=== PATIENT | male | born 1990 ===

== ENCOUNTER 2024-08-08 01:00 | Outpatient (CLI) | payer OTHER, SELFPAY ==
[2024-08-08 12:01] LABS: Abs Immature Grans 0.01 10^3/uL (0.0-0.06); Absolute Basophil Count 0.02 10^3/uL (0.0-0.2); Absolute Eosinophil Count 0.13 10^3/uL (0.0-0.7); Absolute Lymphocyte Count 1.26 10^3/uL (1.2-3.4); Absolute Monocyte Count 0.72 10^3/uL (0.1-0.8); Absolute Neutrophil Count 3.88 10^3/uL (1.2-6.7); Basophils % 0.3 %; Eosinophils % 2.2 %; HGB 14.6 g/dL (13.5-17.5); Immature Grans % 0.2 %; Lymphocytes % 20.9 %; MCH 27.3 pg (27.0-33.0); MCHC 34.8 % (32.0-36.0); MCV 79 fL (80-95); MPV 8.9 fL (8.0-11.0); Neutrophils % 64.4 %; Platelet Count 293 10^3/uL (130-400); RBC 5.34 10^6/uL (4.36-5.78); RDW 12.3 % (11.8-14.1); RDW-SD 34.9 fL; WBC 6.02 10^3/uL (4.4-10.8)
[2024-08-08 12:24] LABS: Hemoglobin A1C 5.1 % (<5.7)
[2024-08-08 12:30] LABS: Bilirubin Negative (Negative); Blood Negative (Negative); Clarity Clear (Clear); Glucose Negative (Negative); Ketones Negative (Negative); Leukocyte Esterase Negative (Negative); Nitrite Negative (Negative); Specific Gravity 1.015 (1.005-1.025); Urobilinogen 0.2 mg/dL (Up to 0.2)
[2024-08-08 12:34] LABS: ALT 40 U/L (16-63); AST 25 U/L (15-37); Albumin 4.2 g/dL (3.4-5.0); Alkaline Phosphatase 91 U/L (46-116); Anion Gap 8.4 mmol/L (3-11); BUN 10 mg/dL (7-18); Bilirubin, Total 0.63 mg/dL (0.2-1.0); CO2 29.6 mmol/L (21.0-32.0); CREATININE 1.1 mg/dL (0.70-1.30); Calcium 9.7 mg/dL (8.5-10.1); Calculated LDL 99 mg/dL (<100); Chloride 105 mmol/L (98-107); Cholesterol 176 mg/dL (<200); Glucose 98 mg/dL (74-106); HDL Cholesterol 54 mg/dL (40-60); Potassium 3.9 mmol/L (3.5-5.1); Sodium 143 mmol/L (136-145); TSH 1.93 uIU/mL (0.36-3.74); Total Protein 7.2 g/dL (6.4-8.2); Triglyceride 119 mg/dL (<150)
== END 2024-08-08 01:01 | disposition home or self-care (01) ==
PROVIDERS: Visit Provider Nurse Practitioner Family
DX: Z83.3 Family history of diabetes mellitus (principal); Z00.00 Encounter for general adult medical examination without abnormal findings; R39.15 Urgency of urination; Z13.228 Encounter for screening for other metabolic disorders
CPT/HCPCS: 36415; 80053; 80061; 81003; 83036; 84443; 85025